=== PATIENT | female | born 1950 | race African-American/Black ===

== ENCOUNTER 2018-05-31 19:10 | Inpatient (IN) | payer MEDICAID, OTHER ==
[~2018-05-31] VITALS: Ht 167.6 cm; Wt 65.8 kg
[~2018-05-31 19:10] MED LIST: ACET-2178 PO; AMLO2.5T45 PO; ASPI-1159 PO
[2018-05-31] MEDS ORDERED: MORPHINE SULFATE 4 MG/ML CPJ (NOT FOR IM USE) IV ONE (20:15)
[2018-05-31 21:23] LABS: CHLORIDE 105 mEq/L (98-107)
[2018-05-31 21:25] LABS: BASOPHILS % 0.8 % (0.0-2.0); EOSINOPHILS % 0.9 % (0.0-5.0); HEMATOCRIT. 35.3 % (36.0-48.0); HEMOGLOBIN. 11.7 g/dL (12.0-16.0); MEAN CORPUSCULAR HEMOGLOBIN 28.4 pg (28.0-32.0); MEAN CORPUSCULAR VOLUME 85.9 fL (81.0-99.0); MEAN PLATELET VOLUME 9.2 fl (7.4-10.4); MONOCYTES % 8.8 % (2.0-8.0); NEUTROPHILS % 55.5 % (40.0-76.0); PLATELET 237 x1000/uL (130-400); RED CELL DISTRIBUTION WIDTH 14.5 % (11.6-14.6)
[2018-05-31] MEDS ORDERED: HYDRALAZINE HCL 50MG TABLET PO ONE (22:00)
[2018-05-31] MEDS ORDERED: DOCUSATE SODIUM 100MG CAPSULE PO PRN (23:45)
[2018-05-31] MEDS ORDERED: ONDANSETRON HCL 4MG/2ML INJ IV PRN (23:45)
[2018-05-31] MEDS ORDERED: IPRATROPIUM/ALBUTEROL 0.5-3(2.5)MG/3ML NEB INH PRN (23:45)
[2018-05-31] MEDS ORDERED: POTASSIUM CHLORIDE 20MEQ TABLET SR PO NR (23:45)
[2018-05-31] MEDS ORDERED: ACETAMINOPHEN 325MG TABLET PO PRN (23:45)
[2018-05-31] MEDS ORDERED: CLONIDINE 0.1MG TABLET PO PRN (23:45)
[2018-05-31] MEDS ORDERED: MAGNESIUM/ALUMINUM HYDROXIDE/SIMETHICONE 30ML UDC PO PRN (23:45)
[2018-05-31] MEDS ORDERED: GUAIFENESIN 200MG/10ML SUGAR FREE UDC PO PRN (23:45)
[2018-06-01] VITALS (9 sets, daily range): BP systolic 112–176; BP diastolic 61–81
[2018-06-01] MEDS: HYDROCODONE/ACETAMINOPHEN 5/325MG TABLET PO PRN ×4 (00:55→21:10)
[2018-06-01 01:19] LABS: CHLORIDE 106 mEq/L (98-107)
[2018-06-01 03:58] LABS: *AMPHETAMINES SCREEN URINE NEGATIVE (NEGATIVE); *BARBITURATES SCREEN URINE NEGATIVE (NEGATIVE); *BENZODIAZEPINES SCREEN URINE NEGATIVE (NEGATIVE); *COCAINE SCREEN URINE NEGATIVE (NEGATIVE); CANNABINOID URINE SCREEN NEGATIVE (NEGATIVE); METHADONE URINE SCREEN NEGATIVE (NEGATIVE); OPIATES URINE SCREEN PRESUMTIVE POSITIVE (NEGATIVE); PHENCYCLIDINE URINE SCREEN NEGATIVE (NEGATIVE)
[2018-06-01 06:48] LABS: BASOPHILS % 0.6 % (0.0-2.0); EOSINOPHILS % 0.9 % (0.0-5.0); HEMATOCRIT. 34.3 % (36.0-48.0); HEMOGLOBIN. 11.4 g/dL (12.0-16.0); MEAN CORPUSCULAR HEMOGLOBIN 28.4 pg (28.0-32.0); MEAN CORPUSCULAR VOLUME 85.4 fL (81.0-99.0); MEAN PLATELET VOLUME 9.4 fl (7.4-10.4); MONOCYTES % 8.3 % (2.0-8.0); NEUTROPHILS % 66.2 % (40.0-76.0); PLATELET 240 x1000/uL (130-400); RED BLOOD CELL COUNT 4.01 mill/uL (4.2-5.4); RED CELL DISTRIBUTION WIDTH 14.3 % (11.6-14.6)
[2018-06-01 08:30] LABS: CREATINE KINASE 43 IU/L (26-192); CREATINE KINASE MB FRACTION < 1.0 ng/mL (0.5-3.6); HDL CHOLESTEROL 47 mg/dL (40-59); LDL CHOLESTEROL 82 mg/dL (5-100)
[2018-06-01] MEDS: ENOXAPARIN 40MG/0.4ML SYR SUBCUT SCH (08:59)
[2018-06-01] MEDS: ASPIRIN 81MG EC TABLET PO SCH (09:00)
[2018-06-01] MEDS ORDERED: AMLODIPINE 2.5MG TABLET PO SCH (12:30)
[2018-06-01] MEDS ORDERED: MELO-106 MT (12:48)
[2018-06-01] MEDS ORDERED: OMEP20CA10 MT (12:48)
[2018-06-01] MEDS ORDERED: CLOP75TA33 MT (12:48)
[2018-06-01] MEDS ORDERED: FURO40TA5 MT (12:48)
[2018-06-01] MEDS ORDERED: FERR236T3 MT (12:48)
[2018-06-01] MEDS ORDERED: TRAZ-213 MT (12:48)
[2018-06-01] MEDS ORDERED: ALBUL MT (12:48)
[2018-06-01] MEDS ORDERED: POTA25TA8 MT (12:48)
[2018-06-01] MEDS ORDERED: CLON-457 MT (12:48)
[2018-06-01] MEDS: METOPROLOL TARTRATE 25MG TABLET PO SCH ×2 (14:43→23:33)
[2018-06-01] MEDS: POTASSIUM CHLORIDE 20MEQ TABLET SR PO SCH (14:43)
[2018-06-01 16:06] LABS: CHLORIDE 107 mEq/L (98-107)
[2018-06-01 16:12] LABS: CREATINE KINASE 58 IU/L (26-192); CREATINE KINASE MB FRACTION 1.1 ng/mL (0.5-3.6)
[2018-06-01 17:33] LABS: CLARITY URINE CLOUDY (CLEAR); COLOR URINE YELLOW (YELLOW); KETONES URINE NEGATIVE (NEGATIVE); LEUKOCYTE ESTERASE URINE TRACE (NEGATIVE); NITRITE URINE POSITIVE (NEGATIVE); OCCULT BLOOD URINE NEGATIVE (NEGATIVE); PH URINE 6.5 (4.5-8.0); PROTEIN URINE NEGATIVE (NEGATIVE); SPECIFIC GRAVITY URINE 1.008 (1.005-1.030); UROBILINOGEN URINE 0.2 E.U./dL (0.2-1.0)
[2018-06-01] MEDS ORDERED: MAGNESIUM/ALUMINUM HYDROXIDE/SIMETHICONE 30ML UDC PO PRN (19:00)
[2018-06-01] MEDS: AMLODIPINE 2.5MG TABLET PO SCH (21:05)
[2018-06-02 04:41] VITALS: BP 179/70
[2018-06-02 06:50] LABS: BASOPHILS % 0.9 % (0.0-2.0); EOSINOPHILS % 1.6 % (0.0-5.0); HEMATOCRIT. 34.9 % (36.0-48.0); HEMOGLOBIN. 11.5 g/dL (12.0-16.0); LYMPHOCYTES % 35.2 % (20.0-50.0); MEAN CORPUSCULAR HEMOGLOBIN 28.4 pg (28.0-32.0); MEAN CORPUSCULAR VOLUME 86.2 fL (81.0-99.0); MEAN PLATELET VOLUME 9.7 fl (7.4-10.4); MONOCYTES % 9.5 % (2.0-8.0); NEUTROPHILS % 52.8 % (40.0-76.0); PLATELET 220 x1000/uL (130-400); RED BLOOD CELL COUNT 4.05 mill/uL (4.2-5.4); RED CELL DISTRIBUTION WIDTH 14.1 % (11.6-14.6)
[2018-06-02] MEDS: HYDROCODONE/ACETAMINOPHEN 5/325MG TABLET PO PRN (07:48)
[2018-06-02 08:00] VITALS: BP 135/75
[2018-06-02] MEDS: AMLODIPINE 2.5MG TABLET PO SCH (09:17)
[2018-06-02] MEDS: ENOXAPARIN 40MG/0.4ML SYR SUBCUT SCH (09:17)
[2018-06-02] MEDS: POTASSIUM CHLORIDE 20MEQ TABLET SR PO SCH (09:17)
[2018-06-02] MEDS: METOPROLOL TARTRATE 25MG TABLET PO SCH (09:17)
[2018-06-02] MEDS: ASPIRIN 81MG EC TABLET PO SCH (09:17)
[2018-06-02 09:46] LABS: CHLORIDE 108 mEq/L (98-107)
[2018-06-02] MEDS ORDERED: POTA20TA82 PO (10:59)
[2018-06-02] MEDS ORDERED: AMLO2.5T45 PO (10:59)
[2018-06-02] MEDS ORDERED: METO25TA6 PO (10:59)
[2018-06-02 11:55] VITALS: BP 135/75
== END 2018-06-02 13:33 | disposition home or self-care (01) | DRG 203 ==
LOC: ER 19:10 → 8WST 21:55 → EDBEDREQ 21:57 → EDBEDREQTM 21:57 → ENRESERV 23:08
PROVIDERS: ADMIT Internal Medicine; ATTEND Internal Medicine
DX: M94.0 Chondrocostal junction syndrome [Tietze] (principal); E44.1 Mild protein-calorie malnutrition; D64.9 Anemia, unspecified; E78.00 Pure hypercholesterolemia, unspecified; E87.6 Hypokalemia; E78.5 Hyperlipidemia, unspecified; F17.200 Nicotine dependence, unspecified, uncomplicated; I10 Essential (primary) hypertension; M19.90 Unspecified osteoarthritis, unspecified site; J45.909 Unspecified asthma, uncomplicated; Z88.9 Allergy status to unspecified drugs, medicaments and biological substances; Z96.659 Presence of unspecified artificial knee joint
CPT/HCPCS: 36415; 71045; 80048; 80053; 80061; 80305; 81003; 82550; 82553; 83735; 83880; 84443; 84484; 85025; 85379; 93005; 93306; 93970; 96372; 96374; 99285; J1650; J2270